=== PATIENT | male | born 1985 | race Two or more races ===

== ENCOUNTER 2022-01-12 18:24 | Emergency (ER) | payer OTHER ==
[~2022-01-12] VITALS: Ht 162.6 cm; Wt 59.0 kg
[2022-01-12 18:30] VITALS: BP 100/60
[2022-01-12] MEDS ORDERED: TDAP [DIPH/PERTUSSIS/TET] 0.5 ML VIAL IM ONE ×2 (18:30→19:01)
--- NOTE | 2022-01-12 18:39 | NUR ---
COVID SWAB DONE AND SENT TO LAB
--- NOTE | 2022-01-12 19:34 | NUR ---
Patient discharged to [facility] in stable condition. Written and verbal after care instructions given. Patient verbalizes understanding of instruction.
== END 2022-01-12 19:35 ==
LOC: ER 18:29 → EDBD 18:29 → ER 19:35
DX: S60.411A Abrasion of left index finger, initial encounter (principal); S60.413A Abrasion of left middle finger, initial encounter; S60.311A Abrasion of right thumb, initial encounter; Y09 Assault by unspecified means; Y92.511 Restaurant or cafe as the place of occurrence of the external cause; Z20.822 Contact with and (suspected) exposure to COVID-19
CPT/HCPCS: 99283; 87426; 90471; 90715; C9803